=== PATIENT | female | born 1995 | race Asian ===

== ENCOUNTER 2018-12-27 19:19 | Outpatient (CLI) | payer OTHER ==
[2018-12-27 19:38] LABS: PLATELET COUNT 276 K/uL (152-353)
[2018-12-27 19:57] LABS: POTASSIUM 3.9 mmol/L (3.6-5.2)
== END 2018-12-27 23:28 | disposition home or self-care (01) ==
LOC: LABW 19:19
PROVIDERS: Internal Medicine
DX: R55 Syncope and collapse (principal)
CPT/HCPCS: 36415; 80053; 84439; 84443; 85027

== ENCOUNTER 2019-01-25 07:46 | Outpatient (CLI) | payer BC, OTHER | END 2019-01-25 23:48 | disposition home or self-care (01) | LOC: MRI 07:46 | DX: H53.8 Other visual disturbances (principal); R42 Dizziness and giddiness; R55 Syncope and collapse | CPT/HCPCS: A9576 ==

== ENCOUNTER 2019-02-07 14:01 | Outpatient (CLI) | payer BC, OTHER | END 2019-02-07 23:59 | LOC: MRI 14:01 | DX: H53.8 Other visual disturbances (principal); R42 Dizziness and giddiness; R55 Syncope and collapse ==

== ENCOUNTER 2019-09-10 20:12 | Outpatient (CLI) | payer BC, OTHER ==
[2019-09-10 21:32] LABS: PLATELET COUNT 343 K/uL (152-353)
[2019-09-10 21:57] LABS: POTASSIUM 3.4 mmol/L (3.6-5.2)
== END 2019-09-10 22:23 | disposition home or self-care (01) ==
LOC: LABW 20:12
PROVIDERS: Internal Medicine
DX: I10 Essential (primary) hypertension (principal); R60.9 Edema, unspecified
CPT/HCPCS: 80053; 81000; 84436; 84443; 85027